=== PATIENT | male | born 1940 | race Caucasian/White ===

== ENCOUNTER → 2016-11-06 12:36 | Outpatient (CLI) | payer MEDICARE, BC | END | disposition home or self-care (01) | LOC: D.RAD 12:36 | DX: R13.10 Dysphagia, unspecified (principal) ==

== ENCOUNTER → 2016-12-16 08:52 | Outpatient (CLI) | payer MEDICARE, BC ==
[2016-12-17 10:19] LABS: IMMUNOGLOBULIN E 6 IU/mL (0-100)
== END | disposition home or self-care (01) ==
LOC: D.RT 08:52
PROVIDERS: Internal Medicine Pulmonary Disease
DX: J44.9 Chronic obstructive pulmonary disease, unspecified (principal)

== ENCOUNTER → 2017-01-15 12:42 | Outpatient (CLI) | payer MEDICARE, BC | END | disposition home or self-care (01) | LOC: D.RAD 12:42 | DX: T17.928A Food in respiratory tract, part unspecified causing other injury, initial encounter (principal) ==

== ENCOUNTER 2017-07-25 09:58 | Emergency (ER) | payer MEDICARE, BC ==
[2017-07-25 10:55] LABS: BASOPHILS 0.3 % (0-2); HEMATOCRIT 37.1 % (42.0-54.0); HEMOGLOBIN 12.4 g/dL (13.5-17.5); IMMATURE GRANULOCYTES 0.2 % (0-5); LYMPHOCYTES 23.8 % (15-50); MCH 32.8 pg (26.0-34.0); MCHC 33.4 g/dL (31.0-37.0); MCV 98.1 fL (80.0-100.0); MEAN PLATELET VOLUME 11.3 fL (7.4-10.4); MONOCYTES 9.2 % (2-11); NEUTROPHILS 65.5 % (40-80); PLATELET COUNT 189 10x3/uL (130-400); RBC 3.78 10x6/uL (4.20-6.10); RDW 13.3 % (11.5-14.5); WBC 6.2 10x3/uL (4.8-10.8)
[2017-07-25 11:10] LABS: ALBUMIN 3.5 g/dL (3.4-5.0); ALKALINE PHOSPHATASE 78 U/L (46-116); ALT (SGPT) 29 U/L (10-68); BILIRUBIN - TOTAL 0.99 mg/dL (0.2-1.3); CALC OSMOLALITY 285 mosm/kg (275-300); CALCIUM 8.9 mg/dL (8.5-10.1); CARBON DIOXIDE 19.2 mmol/L (21.0-32.0); CHLORIDE - SERUM 110 mmol/L (98-107); CREATININE - SERUM 1.5 mg/dL (0.6-1.3); GLUCOSE 88 mg/dL (74-106); POTASSIUM - SERUM 3.5 mmol/L (3.5-5.1); PROTEIN - SERUM 6.5 g/dL (6.4-8.2); SODIUM 143 mmol/L (136-145); UREA NITROGEN 19 mg/dL (7-18); eGFR NON AFRICAN AMERICAN 48 mL/min (90-120)
[2017-07-25 11:19] LABS: PRO BNP 1532 pg/mL (0-450)
[2017-07-25 11:21] LABS: TROPONIN-I < 0.017 ng/mL (0.000-0.060)
== END 2017-07-25 11:59 | disposition home or self-care (01) ==
LOC: D.ER 09:58
PROVIDERS: Emergency Medicine
DX: J44.1 Chronic obstructive pulmonary disease with (acute) exacerbation (principal); F45.8 Other somatoform disorders; R91.8 Other nonspecific abnormal finding of lung field

== ENCOUNTER → 2017-11-04 12:33 | Outpatient (CLI) | payer MEDICARE, BC ==
[~2017-11-04 12:33] MED LIST: ATROVENT 0.02%2.5 ML UPD; CARDIZEM CD180 MG PO; DUTOPROL 25-121 EACH PO; ELIQUIS5 MG PO; FLOMAX0.4 MG PO; FLUTICASONE PRO16 GM NASAL; K-TAB10 MEQ; MULTAQ400 MG PO; PRAVACHOL40 MG PO; PROTONIX40 MG PO; REGLAN10 MG PO; SINGULAIR10 MG PO; XOPENEX HFA15 GM INH
[2017-12-24 08:20] VITALS: BMI 20.2
== END | disposition home or self-care (01) ==
LOC: D.RT 12:33
DX: J18.9 Pneumonia, unspecified organism (principal)

== ENCOUNTER 2017-11-24 06:29 | Outpatient (CLI) | payer MEDICARE, BC ==
[~2017-11-24] VITALS: Ht 180.3 cm; Wt 65.9 kg
[2017-11-24] MEDS ORDERED: CARDIZEM CD180 MG PO (07:05)
[2017-11-24] MEDS ORDERED: ELIQUIS5 MG PO (07:06)
[2017-11-24] MEDS ORDERED: FLUTICASONE PRO16 GM NASAL (07:07)
[2017-11-24] MEDS ORDERED: ATROVENT 0.02%2.5 ML UPD (07:08)
[2017-11-24] MEDS ORDERED: XOPENEX HFA15 GM INH (07:09)
[2017-11-24] MEDS ORDERED: REGLAN10 MG PO (07:10)
[2017-11-24] MEDS ORDERED: DUTOPROL 25-121 EACH PO (07:11)
[2017-11-24] MEDS ORDERED: SINGULAIR10 MG PO (07:11)
[2017-11-24 07:12] LABS: BASOPHILS 0.4 % (0-2); EOSINOPHILS 3.4 % (0-7); HEMATOCRIT 38.2 % (42.0-54.0); HEMOGLOBIN 12.6 g/dL (13.5-17.5); IMMATURE GRANULOCYTES 0.3 % (0-5); LYMPHOCYTES 23.2 % (15-50); MCH 31.7 pg (26.0-34.0); MCV 96.2 fL (80.0-100.0); MEAN PLATELET VOLUME 11.1 fL (7.4-10.4); MONOCYTES 11.6 % (2-11); NEUTROPHILS 61.1 % (40-80); PLATELET COUNT 198 10x3/uL (130-400); RBC 3.97 10x6/uL (4.20-6.10); RDW 14.7 % (11.5-14.5); WBC 7.8 10x3/uL (4.8-10.8)
[2017-11-24] MEDS ORDERED: MULTAQ400 MG PO (07:12)
[2017-11-24] MEDS ORDERED: K-TAB10 MEQ (07:13)
[2017-11-24] MEDS ORDERED: PROTONIX40 MG PO (07:13)
[2017-11-24] MEDS ORDERED: PRAVACHOL40 MG PO (07:14)
[2017-11-24] MEDS ORDERED: FLOMAX0.4 MG PO (07:15)
[2017-11-24 07:27] VITALS: Ht 180.3 cm; Wt 65.9 kg
[2017-11-24 07:34] LABS: ANION GAP 14.3 mmol/L (8-16); CALCIUM 8.5 mg/dL (8.5-10.1); CARBON DIOXIDE 23.1 mmol/L (21.0-32.0); CREATININE - SERUM 1.4 mg/dL (0.6-1.3); INR 1.16 (0.85-1.17); POTASSIUM - SERUM 3.4 mmol/L (3.5-5.1); PROTIME 14.4 SECONDS (11.6-15.0)
[2017-11-24 07:35] LABS: APTT 30.2 SECONDS (22.8-39.4)
== END 2017-11-24 13:50 | disposition home or self-care (01) ==
LOC: D.SP 06:29 → D.OPS 09:00 → D.SP 09:00
PROVIDERS: Specialist
DX: J90 Pleural effusion, not elsewhere classified (principal); J44.9 Chronic obstructive pulmonary disease, unspecified; J45.909 Unspecified asthma, uncomplicated; J18.9 Pneumonia, unspecified organism; Z01.812 Encounter for preprocedural laboratory examination; I10 Essential (primary) hypertension; K21.9 Gastro-esophageal reflux disease without esophagitis; N18.9 Chronic kidney disease, unspecified

== ENCOUNTER → 2017-12-09 11:37 | Outpatient (CLI) | payer MEDICARE, BC ==
[2017-11-24 07:27] VITALS: BMI 20.2
== END | disposition home or self-care (01) ==
LOC: D.RAD 11:37
DX: J81.0 Acute pulmonary edema (principal)

== ENCOUNTER 2017-12-24 07:32 | Outpatient (CLI) | payer MEDICARE, BC ==
[~2017-12-24] VITALS: Ht 180.3 cm; Wt 65.9 kg
[2017-12-24 08:20] VITALS: BP 132/71; Ht 180.3 cm; Wt 65.9 kg
[2017-12-24 09:28] LABS: BASOPHILS 0.2 % (0-2); HEMATOCRIT 37.4 % (42.0-54.0); HEMOGLOBIN 12.6 g/dL (13.5-17.5); IMMATURE GRANULOCYTES 0.2 % (0-5); LYMPHOCYTES 28.4 % (15-50); MCH 31.9 pg (26.0-34.0); MCHC 33.7 g/dL (31.0-37.0); MCV 94.7 fL (80.0-100.0); MEAN PLATELET VOLUME 11.4 fL (7.4-10.4); MONOCYTES 9.6 % (2-11); NEUTROPHILS 57.6 % (40-80); PLATELET COUNT 193 10x3/uL (130-400); RBC 3.95 10x6/uL (4.20-6.10); RDW 13.6 % (11.5-14.5)
[2017-12-24 09:37] LABS: INR 1.08 (0.85-1.17); PROTIME 13.6 SECONDS (11.6-15.0)
[2017-12-24 09:38] LABS: APTT 30.1 SECONDS (22.8-39.4)
[2017-12-24 09:39] LABS: CALCIUM 8.6 mg/dL (8.5-10.1); CARBON DIOXIDE 23.6 mmol/L (21.0-32.0); CREATININE - SERUM 1.4 mg/dL (0.6-1.3); POTASSIUM - SERUM 3.6 mmol/L (3.5-5.1)
[2017-12-24 12:58] LABS: MACROPHAGES BF 51 %; MESOTHELIALS BF 6 %; NEUT - BF 7 %
[2017-12-24 13:23] LABS: PROTEIN - BODY FLUID 3.8 G/DL
[2017-12-25 18:48] LABS: ACID FAST SMEAR Negative (()); AFB SPECIMEN PROCESSING Not Indicated (())
[2017-12-26 13:18] LABS: FUNGUS STAIN Final report (())
[2018-01-21 10:22] LABS: FUNGUS MYCOLOGY CULTURE Final report (())
== END 2017-12-24 14:40 | disposition home or self-care (01) ==
LOC: D.SP 07:32 → D.CT 10:00 → D.SP 14:40
PROVIDERS: Internal Medicine Pulmonary Disease; Radiology Vascular & Interventional Radiology
DX: J90 Pleural effusion, not elsewhere classified (principal); J18.9 Pneumonia, unspecified organism; J44.9 Chronic obstructive pulmonary disease, unspecified; Z01.812 Encounter for preprocedural laboratory examination

== ENCOUNTER → 2018-02-25 10:34 | Outpatient (CLI) | payer MEDICARE, BC ==
[2017-12-24 08:20] VITALS: BMI 20.2
== END | disposition home or self-care (01) ==
LOC: D.RAD 10:34
DX: J18.9 Pneumonia, unspecified organism (principal)

== ENCOUNTER → 2018-12-14 07:25 | Outpatient (CLI) | payer MEDICARE, BC ==
[2017-12-24 08:20] VITALS: BMI 20.2
== END | disposition home or self-care (01) ==
LOC: D.RT 07:25
PROVIDERS: ATTEND Internal Medicine Pulmonary Disease
DX: J45.909 Unspecified asthma, uncomplicated (principal)

== ENCOUNTER → 2019-05-31 10:33 | Outpatient (CLI) | payer MEDICARE, BC ==
[2017-12-24 08:20] VITALS: BMI 20.2
== END | disposition home or self-care (01) ==
LOC: D.RAD 10:33
PROVIDERS: ATTEND Internal Medicine Pulmonary Disease
DX: J44.9 Chronic obstructive pulmonary disease, unspecified (principal)

== ENCOUNTER 2019-07-12 08:44 | Inpatient (IN) | payer MEDICARE, BC ==
[~2019-07-12] VITALS: Ht 180.3 cm; Wt 77.1 kg
[2019-07-12] MEDS ORDERED: FUROSEMIDE20 MG PO (08:59)
[2019-07-12 09:19] LABS: BASOPHILS 0.2 % (0-2); HEMATOCRIT 44.5 % (42.0-54.0); HEMOGLOBIN 14.7 g/dL (13.5-17.5); IMMATURE GRANULOCYTES 0.2 % (0-5); LYMPHOCYTES 12.1 % (15-50); MCH 33.6 pg (26.0-34.0); MCV 101.8 fL (80.0-100.0); MEAN PLATELET VOLUME 11.1 fL (7.4-10.4); MONOCYTES 11.8 % (2-11); NEUTROPHILS 72.7 % (40-80); PLATELET COUNT 212 10x3/uL (130-400); RBC 4.37 10x6/uL (4.20-6.10); RDW 13.3 % (11.5-14.5); WBC 12.6 10x3/uL (4.8-10.8)
[2019-07-12 09:30] VITALS: BP 135/69
[2019-07-12 09:31] LABS: CALC OSMOLALITY 278 mosm/kg (275-300); CALCIUM 8.5 mg/dL (8.5-10.1); CARBON DIOXIDE 25.3 mmol/L (21.0-32.0); CHLORIDE - SERUM 110 mmol/L (98-107); CREATININE - SERUM 1.3 mg/dL (0.6-1.3); GLUCOSE 98 mg/dL (74-106); POTASSIUM - SERUM 3.9 mmol/L (3.5-5.1); SODIUM 139 mmol/L (136-145); UREA NITROGEN 15 mg/dL (7-18); eGFR NON AFRICAN AMERICAN 56 mL/min (90-120)
[2019-07-12 09:45] VITALS: BP 137/64
[2019-07-12 09:59] LABS: ALBUMIN 3.3 g/dL (3.4-5.0); ALKALINE PHOSPHATASE 106 U/L (46-116); ALT (SGPT) 16 U/L (10-68); BILIRUBIN - TOTAL 0.75 mg/dL (0.2-1.3); CKMB 0.7 U/L (0.0-3.6); CREATINE KINASE 30 UL (21-232); PROTEIN - SERUM 7.1 g/dL (6.4-8.2); TROPONIN-I < 0.017 ng/mL (0.000-0.060)
[2019-07-12 11:52] LABS: THYROID STIMULATING HORMONE 2.27 uIU/mL (0.36-3.74)
[2019-07-12 12:16] VITALS: BP 135/70; BMI 23.7
[2019-07-12] MEDS ORDERED: KLOR-CON 1010 MEQ PO (12:37)
[2019-07-12] MEDS ORDERED: COREG25 MG PO (12:38)
[2019-07-12] MEDS ORDERED: LUTEIN20 MG PO (12:39)
[2019-07-12 13:25] LABS: APTT 37.6 SECONDS (22.8-39.4); INR 1.51 (0.85-1.17); PROTIME 17.6 SECONDS (11.6-15.0)
[2019-07-12 13:26] LABS: D-DIMER-QUANTITATIVE 0.84 ug/mLFEU (0.20-0.54)
--- NOTE | 2019-07-12 15:13 | MORECARE ---
CASE MANAGEMENT DISCHARGE SUMMARY PATIENT: KALEIGH GORDILLO UNIT: [id number] ADM DATE: 07/12/19 AGE: 78 : 38 SEX: M ROOM/BED: D.1211 AUTHOR: JULIENDOC PHYSICIAN: REFERRING PHYSICIAN: MACIEL CORONA MD DATE OF SERVICE: 07/12/19 Discharge Plan Patient Name: KALEIGH GORDILLO Facility: [facility]:[place] : 1940 Planned Disposition: Home Anticipated Discharge Date: 07/14/19 Discharge Date: Expected LOS: 2 Initial Reviewer: [email or web address] Initial Review Date: 07/12/2019 Generated: 07/12/19 4:13 pm DCP- Discharge Planning Updated by [email or web address]: Barb Bernal on 07/12/19 2:[address] DC PLAN: Return home with his . ANTICIPATED DC NEEDS: Denied known dc needs. CM met with patient and his , Marilyn to complete initial dc planning assessment. CM educated patient on the CM role and verbal consent given by patient to complete assessment. CM verified patient's address, phone number, and emergency contact phone numbers. Patient lives at home with his . He requires assistance with bathing and dressing. He no longer drives so his provides all transports. At discharge patient plans to return home and feels this is a safe discharge. CM discussed availability of home health, rehab services, and medical equipment. Patient denied known discharge needs at this time. Transportation provider at discharge will be his . CM will continue to follow and will assist as needed with dc plans/needs. Barb Bernal RN, [facility] DCPIA - Discharge Planning Initial Assessment Updated by [email or web address]: Barb Bernal on 07/12/19 3:09 pm * Is the patient Alert and Oriented? Yes * How many steps to enter\exit or inside your home? three * PCP Dr. Andrés Alexandra * Pharmacy [facility] * Preadmission Environment Home with Family * ADLs Partial Dependent * Partial ADLs (Assistance needed) Bathing Dressing * Equipment Bedside Commode Cane Nebulizer Rolling Walker Shower Chair Wheelchair * Other Equipment Blood pressure cuff * List name and contact numbers for known caregivers / representatives who currently or will assist patient after discharge: Marilyn Gordillo - spouse - [phone] * Verbal permission to speak to the caregivers and representatives has been obtained from the patient. Yes * Community resources currently utilized None * Additional services required to return to the preadmission environment? No * Can the patient safely return to the preadmission environment? Yes * Has this patient been hospitalized within the prior 30 days at any hospital? No Patient Name: KALEIGH GORDILLO Page [id number] at 1513 All edits/amendments must be made on the electronic document DICTATION DATE: 07/12/191512 INSPECTOR MOTOR VEHICLES: CARL 07/12/191512 RPT#: [id number] DC DATE: STATUS: ADM IN [facility] [address] [place] [address] END OF REPORT
[2019-07-12 15:16] LABS: CKMB 0.6 U/L (0.0-3.6); CREATINE KINASE 25 UL (21-232)
[2019-07-12 15:19] LABS: TROPONIN-I 0.016 ng/mL (0.000-0.060)
[2019-07-12 17:50] LABS: APPEARANCE CLEAR (CLEAR); BILIRUBIN NEGATIVE (NEGATIVE); COLOR YELLOW (YELLOW); GLUCOSE NEGATIVE (NEGATIVE); KETONE NEGATIVE (NEGATIVE); NITRITE NEGATIVE (NEGATIVE); PROTEIN NEGATIVE (NEGATIVE); SPECIFIC GRAVITY 1.015 (1.005-1.020); UROBILINOGEN NORMAL (NORMAL)
[2019-07-12 19:41] LABS: CKMB 0.5 U/L (0.0-3.6); CREATINE KINASE 25 UL (21-232); TROPONIN-I 0.023 ng/mL (0.000-0.060)
[2019-07-12 19:50] VITALS: BP 105/56
--- NOTE | 2019-07-12 21:26 | NUR ---
PATIENT RESTING IN BED WITH EYES OPEN. AT BEDSIDE. PATIENT CALM AND COOPERATIVE WITH CARE AND ASSESSMENT. DENIES HAVING PAIN OR NEEDS AT THIS TIME. BED IN LOWEST POSITION. SIDE RAILS UP. CALL LIGHT IN REACH. WILL CONTINUE TO MONITOR.
[2019-07-13 00:16] VITALS: BP 105/59
[2019-07-13 01:12] LABS: CKMB 0.3 U/L (0.0-3.6); CREATINE KINASE 48 UL (21-232)
[2019-07-13 01:13] LABS: TROPONIN-I < 0.017 ng/mL (0.000-0.060)
--- NOTE | 2019-07-13 03:57 | NUR ---
PATIENT RESTING IN BED WITH EYES CLOSED. NO SIGNS OF DISTRESS. AT BEDSIDE. BED IN LOWEST POSITION. SIDE RAILS UP. CALL LIGHT IN REACH. WILL CONTINUE TO MONITOR.
[2019-07-13 05:39] VITALS: BP 101/57
[2019-07-13 06:29] LABS: BASOPHILS 0.1 % (0-2); EOSINOPHILS 4.1 % (0-7); HEMATOCRIT 37.7 % (42.0-54.0); HEMOGLOBIN 12.2 g/dL (13.5-17.5); IMMATURE GRANULOCYTES 0.4 % (0-5); LYMPHOCYTES 19.5 % (15-50); MCH 32.4 pg (26.0-34.0); MCHC 32.4 g/dL (31.0-37.0); MCV 100.3 fL (80.0-100.0); MONOCYTES 15.1 % (2-11); NEUTROPHILS 60.8 % (40-80); PLATELET COUNT 173 10x3/uL (130-400); RBC 3.76 10x6/uL (4.20-6.10); RDW 13.4 % (11.5-14.5)
[2019-07-13 06:44] LABS: ANION GAP 11.9 mmol/L (8-16); CALCIUM 8.2 mg/dL (8.5-10.1); CARBON DIOXIDE 22.6 mmol/L (21.0-32.0); CREATININE - SERUM 1.3 mg/dL (0.6-1.3); POTASSIUM - SERUM 3.5 mmol/L (3.5-5.1)
--- NOTE | 2019-07-13 07:33 | NUR ---
PT RESTING IN BED WITH EYES OPEN, AT THE BEDSIDE. NO S/S OF DISTRESS NOTED AT THIS TIME. IV LOCATED TO RIGHT WRIST CURRENTLY SL. DENIES NEES AT THIS TIME, WILL CONT TO MONITOR.
[2019-07-13 08:01] VITALS: BP 121/62
--- NOTE | 2019-07-13 08:10 | NUR ---
PT WAS ABLE TO VOID BEFORE DOING BLADDER SCAN, BLADDER SCAN SHOWED 112ML, NO BENITEZ NEEDED AT THIS TIME.
[2019-07-13 12:25] VITALS: BP 118/69
[2019-07-13 14:25] VITALS: Ht 180.3 cm; Wt 77.1 kg
[2019-07-13 16:26] VITALS: BP 140/65
[2019-07-13 19:29] VITALS: BP 135/63
[2019-07-14 00:23] VITALS: BP 130/62
[2019-07-14 04:00] VITALS: BP 126/64
[2019-07-14 06:12] LABS: BASOPHILS 0.3 % (0-2); EOSINOPHILS 3.9 % (0-7); HEMOGLOBIN 12.7 g/dL (13.5-17.5); IMMATURE GRANULOCYTES 0.4 % (0-5); MCH 33.2 pg (26.0-34.0); MCHC 33.4 g/dL (31.0-37.0); MCV 99.2 fL (80.0-100.0); MEAN PLATELET VOLUME 11.3 fL (7.4-10.4); MONOCYTES 12.4 % (2-11); PLATELET COUNT 193 10x3/uL (130-400); RBC 3.83 10x6/uL (4.20-6.10); RDW 13.1 % (11.5-14.5); WBC 8.9 10x3/uL (4.8-10.8)
[2019-07-14 06:25] LABS: ANION GAP 12.7 mmol/L (8-16); CALCIUM 8.1 mg/dL (8.5-10.1); CREATININE - SERUM 1.1 mg/dL (0.6-1.3); POTASSIUM - SERUM 3.7 mmol/L (3.5-5.1)
[2019-07-14 07:24] VITALS: BP 136/65
[2019-07-14] MEDS ORDERED: ZITHROMAX500 MG PO (09:01)
[2019-07-14] MEDS ORDERED: OMNICEF300 MG PO (09:01)
[2019-07-14] MEDS ORDERED: TESSALON PERLE100 MG PO (09:02)
--- NOTE | 2019-07-14 10:15 | NUR ---
PROVIDED VERBAL AND WRITTEN DISCHARGE TEACHING TO PT AND , BOTH VERBALIZED UNDERSTANDING REGARDING TEACHING. D/C RT WRIST IV WITH CATHETER TIP INTACT. 1030- PT LEFT UNIT VIA WHEELCHAIR, WITH ALL BELONGINGS, ACCOMPANIED BY SPOUSE, NAD NOTED.
--- NOTE | 2019-07-14 14:08 | EC ---
PATIENT:KALEIGH CHANG DATE OF SERVICE: 07/12/19 SEX: M MEDICAL RECORD: [id number] DATE OF : 38 LOCATION:D. D.121 AGE OF PATIENT: 78 ADMISSION DATE: 07/12/19 REFERRING PHYSICIAN: INTERPRETING PHYSICIAN: TERRANCE SUH MD ECHOCARDIOGRAM REPORT ECHO CHARGES 4 ECHO COMPLETE Date: 07/12/19 CLINICAL DIAGNOSIS: CHF ECHOCARDIOGRAPHIC MEASUREMENTS (adult normal given) AC root (d.<3.7cm) 3.7 cm LV Septum d (<1.2 cm> 1.3 cm Valve Excursion 1.6 cm LV Septum (systole) 1.8 cm Left Atria (s.<4.0cm> 4.2 cm LVPW d(<1.2cm) 1.2 cm RV (d.<2.3cm) 4.0 cm LVPW (sytole) 1.8 cm LV diastole(<5.6CM) 1.7 cm MV E-F(>70mm/sec) cm LV systole 2.7 cm LVOT Diameter 2.2 cm MV exc.(>10mm) cm Est.ejection fraction (50-75%) % DOPPLER: LVIT cm/sec A 107 cm/sec E 63.0 cm/sec LA cm/sec RVSP 33.0 mmHg LVOT 69.0 cm/sec AOP1/2T m/s Asc. Ao 160 cm/sec RVOT 58.0 cm/sec RA cm/sec PA 102 cm/sec AV Gradient Peak 10.3 mmHg AV Mean 5.0 mmHg AV Area 1.6 cm MV Gradient Peak 5.5 mmHg MV Mean 1.5 mmHg MV Area cm COMMENTS: Die Keeper: 1 JENNY LAWOE Code Enforcement Supervisor: 1 Dr. Suh TAPE# PACS Pericardial Effusion N DATE OF SERVICE: FINDINGS: 1. Left ventricular chamber size is mildly dilated. Left ventricular systolic function is moderately reduced at 30%. 2. Left atrium is enlarged at 4.2 cm. Right atrium and right ventricular chamber sizes are within normal limits. 3. Valvular structures have normal structure and motion. 4. Doppler interrogation reveals moderate tricuspid regurgitation, no other valvular insufficiency or stenosis. Pulmonary systolic pressure is estimated at ECHOCARDIOGRAM REPORT [id number] KALEIGH CHANG 33 mmHg. 5. No evidence of pericardial effusion or left ventricular thrombus. TRANSINT:[id number] Voice Confirmation ID: [id number] DOCUMENT ID: [id number] TERRANCE SUH MD at 1408 CC: [id number] DICTATION DATE: 07/12/191801 STAMP CLASSIFIER: 07/13/19 0154 DIS IN 07/14/19 [place] [id number] [place] [id number]
--- NOTE | 2019-07-14 19:54 | MORECARE ---
CASE MANAGEMENT DISCHARGE SUMMARY PATIENT: KALEIGH GORDILLO UNIT: [id number] ADM DATE: 07/12/19 AGE: 78 : 38 SEX: M ROOM/BED: D.1211 AUTHOR: JULIENDOC PHYSICIAN: REFERRING PHYSICIAN: MACIEL CORONA MD DATE OF SERVICE: 07/14/19 Discharge Plan Patient Name: KALEIGH GORDILLO Facility: [facility]:[place] : 1940 Planned Disposition: Home Anticipated Discharge Date: 07/14/19 Discharge Date: 07/14/2019 Expected LOS: 2 Initial Reviewer: [email or web address] Initial Review Date: 07/12/2019 Generated: 07/14/19 8:54 pm DCP- Discharge Planning Updated by [email or web address]: Barb Bernal on 07/12/19 2:[address] DC PLAN: Return home with his . ANTICIPATED DC NEEDS: Denied known dc needs. CM met with patient and his , Marilyn to complete initial dc planning assessment. CM educated patient on the CM role and verbal consent given by patient to complete assessment. CM verified patient's address, phone number, and emergency contact phone numbers. Patient lives at home with his . He requires assistance with bathing and dressing. He no longer drives so his provides all transports. At discharge patient plans to return home and feels this is a safe discharge. CM discussed availability of home health, rehab services, and medical equipment. Patient denied known discharge needs at this time. Transportation provider at discharge will be his . CM will continue to follow and will assist as needed with dc plans/needs. Barb Bernal RN, [facility] DCPIA - Discharge Planning Initial Assessment Updated by [email or web address]: Barb Bernal on 07/12/19 3:09 pm * Is the patient Alert and Oriented? Yes * How many steps to enter\exit or inside your home? three * PCP Dr. Andrés Alexandra * Pharmacy [facility] * Preadmission Environment Home with Family * ADLs Partial Dependent * Partial ADLs (Assistance needed) Bathing Dressing * Equipment Bedside Commode Cane Nebulizer Rolling Walker Shower Chair Wheelchair * Other Equipment Blood pressure cuff * List name and contact numbers for known caregivers / representatives who currently or will assist patient after discharge: Marilyn Gordillo - spouse - [phone] * Verbal permission to speak to the caregivers and representatives has been obtained from the patient. Yes * Community resources currently utilized None * Additional services required to return to the preadmission environment? No * Can the patient safely return to the preadmission environment? Yes * Has this patient been hospitalized within the prior 30 days at any hospital? No Last DP export: 07/12/19 2:13 p Patient Name: KALEIGH GORDILLO Page [id number] at 1953 All edits/amendments must be made on the electronic document DICTATION DATE: 07/14/191953 RETIREMENT PLAN COUNSELOR: CARL 07/14/191953 RPT#: [id number] DC DATE:07/14/19 STATUS: DIS IN [facility] [address] [place] [address] END OF REPORT
== END 2019-07-14 10:31 | disposition home or self-care (01) | DRG 177 ==
LOC: D.ER 08:44 → D.M3 10:30
PROVIDERS: Emergency Medicine; ADMIT Internal Medicine Nephrology; ATTEND Internal Medicine Nephrology
DX: J69.0 Pneumonitis due to inhalation of food and vomit (principal); I50.33 Acute on chronic diastolic (congestive) heart failure; I42.8 Other cardiomyopathies; J98.11 Atelectasis; I13.0 Hypertensive heart and chronic kidney disease with heart failure and stage 1 through stage 4 chronic kidney disease, or unspecified chronic kidney disease; J43.9 Emphysema, unspecified; K21.9 Gastro-esophageal reflux disease without esophagitis; K31.84 Gastroparesis; N18.9 Chronic kidney disease, unspecified; E78.5 Hyperlipidemia, unspecified; N40.0 Benign prostatic hyperplasia without lower urinary tract symptoms; I48.0 Paroxysmal atrial fibrillation; C43.9 Malignant melanoma of skin, unspecified

== ENCOUNTER → 2020-03-09 09:59 | Outpatient (CLI) | payer MEDICARE, BC ==
[2019-07-13 14:25] VITALS: BMI 23.7
[~2020-03-09 09:59] MED LIST changes: +COREG25 MG PO; +FUROSEMIDE20 MG PO; +KLOR-CON 1010 MEQ PO; +LUTEIN20 MG PO; +OMNICEF300 MG PO; +TESSALON PERLE100 MG PO; +ZITHROMAX500 MG PO
== END | disposition home or self-care (01) ==
LOC: D.LAB 09:59
PROVIDERS: ATTEND Internal Medicine Pulmonary Disease
DX: Z11.59 Encounter for screening for other viral diseases (principal)

== ENCOUNTER → 2020-03-13 10:46 | Outpatient (CLI) | payer MEDICARE, BC ==
[2019-07-13 14:25] VITALS: BMI 23.7
== END | disposition home or self-care (01) ==
LOC: D.RAD 12-03 13:00 → D.RT 12-03 13:00 → D.RAD 12-03 14:00
PROVIDERS: ATTEND Internal Medicine Pulmonary Disease
DX: J44.9 Chronic obstructive pulmonary disease, unspecified (principal)